=== PATIENT | male | born 1975 | race American Indian/Alaskan Native ===

== ENCOUNTER 2018-04-28 07:24 | Emergency (ER) | payer MEDICARE ==
[2018-04-28 07:24] VITALS: BMI 22.0
[2018-04-28 07:37] VITALS: RESP 18; TEMP 97.5
[2018-04-28] MEDS ORDERED: Alum-Mag Hydrox-Simethicone Susp (30 mL) PO STA (07:52)
[2018-04-28] MEDS ORDERED: Sodium Chloride 0.9% 1,000 ML IV STA (07:52)
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
[2018-04-28 08:12] LABS: BLOOD UREA NITROGEN 9 mg/dL (7-21); GFR AFRICAN-AMERICAN > 60; GFR NON-AFRICAN AMERICAN > 60
[2018-04-28 08:13] LABS: ALB/GLOB RATIO 1.4 (1.1-1.8); ALBUMIN 4.8 g/dL (3.0-4.8); ALT/SGPT 20 U/L (7-56); AST/SGOT 31 U/L (17-59); BASO # 0.02 K/mm3 (0.0-2.0); BASO % 0.3 % (0.0-3.0); CALCIUM 9.7 mg/dL (8.4-10.5); EOS # 0.1 (0.0-0.7); EOS % 1.2 % (1.5-5.0); GRAN # 3.35 (1.4-6.5); GRAN % 50.5 % (50.0-68.0); HEMOGLOBIN 13.1 g/dL (14.0-18.0); LIPASE 28 U/L (23-300); LYMPH % 30.7 % (22.0-35.0); MEAN CELL VOLUME 86.1 fl (80.0-105.0); MEAN CORPUSCULAR HEMOGLOBIN 29.3 pg (25.0-35.0); MEAN PLATELET VOLUME 9.5 fl (7.0-11.0); MONO # 1.2 (0.1-0.6); MONO % 17.3 % (1.0-6.0); RBC 4.47 10^6/uL (3.5-6.1); RED CELL DISTRIBUTION WIDTH 12.3 % (11.5-14.5); WHITE BLOOD COUNT 6.6 10^3/ul (4.5-11.0)
[2018-04-28] MEDS ORDERED: Iohexol 350 MG/100 ML VIAL ONE (08:35)
--- NOTE | 2018-04-28 09:25 | CT ---
PROCEDURE: CT Abdomen and Pelvis with contrast HISTORY: abdominal pain, nausea COMPARISON: 12/06/2012 CT abdomen and pelvis TECHNIQUE: Contrast dose: 100 cc Omnipaque 350 Radiation dose: Total exam DLP = 69.68 mGy-cm. This CT exam was performed using one or more of the following dose reduction techniques: Automated exposure control, adjustment of the mA and/or kV according to patient size, and/or use of iterative reconstruction technique. FINDINGS: LOWER THORAX: Unremarkable. LIVER: Hepatic steatosis. No focal masses. No intrahepatic bile duct dilatation or perihepatic ascites. GALLBLADDER AND BILE DUCTS: Unremarkable. PANCREAS: Unremarkable. No gross lesion or ductal dilatation. SPLEEN: Unremarkable. ADRENALS: Unremarkable. No mass. KIDNEYS AND URETERS: Unremarkable. No hydronephrosis. No solid mass. VASCULATURE: Unremarkable. No aortic aneurysm. 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 APPENDIX: No abnormalities to suggest acute appendicitis. No right lower quadrant inflammatory processes identified. PERITONEUM: Unremarkable. No free fluid. No free air. LYMPH NODES: Unremarkable. No enlarged lymph nodes. BLADDER: Unremarkable. REPRODUCTIVE: Unremarkable. BONES: No acute fracture. OTHER FINDINGS: None. IMPRESSION: No acute findings related to/accounting for the clinical presentation. Additional benign and/or incidental findings described above.
[2018-04-28 10:23] VITALS: BP 123/80; PULSE 78; O2SAT 99
== END 2018-04-28 10:22 | disposition home or self-care (01) ==
LOC: ED 07:24
DX: K59.00 Constipation, unspecified (principal); G35 Multiple sclerosis
CPT/HCPCS: 74177; 80053; 83690; 85025; 96361; 96374; 96375; 99283; J2405; J7030; Q9967